=== PATIENT | female | born 1955 | race Caucasian/White ===

== ENCOUNTER → 2016-06-28 | Outpatient (CLI) | payer OTHER | LOC: CIMAGING 08:03 | DX: Z12.31 Encounter for screening mammogram for malignant neoplasm of breast (principal) | CPT/HCPCS: G0202 ==

== ENCOUNTER → 2016-07-18 | Outpatient (CLI) | payer OTHER | LOC: CIMAGING 12:41 | DX: R93.8 Abnormal findings on diagnostic imaging of other specified body structures (principal); Z80.3 Family history of malignant neoplasm of breast | CPT/HCPCS: 76641-PO; G0206 ==

== ENCOUNTER → 2017-03-30 | Outpatient (CLI) | payer OTHER | LOC: CIMAGING 12:45 | PROVIDERS: ATTEND Family Medicine | DX: R92.8 Other abnormal and inconclusive findings on diagnostic imaging of breast (principal) | CPT/HCPCS: G0206 ==

== ENCOUNTER → 2017-07-25 | Outpatient (CLI) | payer OTHER | LOC: CIMAGING 14:47 | PROVIDERS: ATTEND Family Medicine | DX: Z12.31 Encounter for screening mammogram for malignant neoplasm of breast (principal) ==

== ENCOUNTER → 2018-08-29 | Outpatient (CLI) | payer OTHER | LOC: CIMAGING 09:11 ==